=== PATIENT | male | born 1955 | race African-American/Black ===

== ENCOUNTER 2020-03-03 19:11 | Emergency (ER) | payer MEDICARE, SELFPAY | END 2020-03-03 20:07 | disposition home or self-care (01) | LOC: NAV ERS 19:11 | DX: M25.511 Pain in right shoulder (principal); X50.0XXA Overexertion from strenuous movement or load, initial encounter | CPT/HCPCS: 99281 ==

== ENCOUNTER 2025-07-09 22:02 | Emergency (ER) | payer MEDICARE ==
[~2025-07-09 22:02] MED LIST: Iopamidol 370 76% 100 ML VIAL ONE
[2025-07-09 23:17] LABS: INR-International Normal Ratio 1.2; Prothrombin Time 15.5 sec (12.0-14.7)
[2025-07-09 23:18] LABS: PTT 36.7 sec (22.9-36.1)
[2025-07-09 23:19] LABS: ALT (SGPT) 14 U/L (Less than 45); AST (SGOT) 19 U/L (11-34); Albumin 3.9 g/dL (3.1-4.5); Alkaline Phosphatase 63 U/L (40-110); Anion Gap 16 mmol/L (10-20); BUN (Urea Nitrogen) 13 mg/dL (8.4-25.7); Bilirubin, Total 0.4 mg/dL (0.3-1.2); Calc. Creatinine Clearance 0 mL/min (70-130); Calcium 9.3 mg/dL (7.8-10.44); Carbon Dioxide 22 mmol/L (23-31); Chloride 110 mmol/L (98-107); Globulin 2.9 g/dL (2.4-3.5); Glucose 66 mg/dL (83-110); Potassium 4.2 mmol/L (3.5-5.1); Sodium 144 mmol/L (136-145)
[2025-07-09 23:26] LABS: #Basophils 0.1 thou/uL (0.0-0.2); #Eosinophils 0.2 thou/uL (0.0-0.7); #Lymphocytes 1.9 thou/uL (1.20-3.40); #Monocytes 0.4 thou/uL (0.11-0.59); #Neutrophils 2.0 thou/uL (1.40-6.50); %Basophils 2.2 % (0.0-1.0); %Eosinophils 3.9 % (0.0-10.0); %Lymphocytes 40.4 % (21.0-51.0); %Monocytes 9.6 % (0.0-10.0); %Neutrophils 44.0 % (42.0-75.0); Hematocrit 34.5 % (42.0-52.0); Hemoglobin 11.9 g/dL (14.0-18.0); Mean Corpuscular Hemoglobin 30.6 pg (27.0-31.0); Mean Corpuscular Volume 88.7 fl (78.0-98.0); Platelet Count 128 10x3/uL (130-400); Red Blood Cell (RBC) Count 3.89 mill/uL (4.70-6.10); White Blood Cell (WBC) Count 4.6 10x3/uL (4.8-10.8)
[2025-07-10] MEDS ORDERED: Tenecteplase 50 MG ONE (04:38)
[2025-07-10] MEDS ORDERED: niCARdipine 25 MG/10 ML SDV ONE (04:38)
== END 2025-07-10 02:14 | disposition short-term general hospital (02) ==
LOC: NAV ERS 22:02
DX: I63.9 Cerebral infarction, unspecified (principal); R13.0 Aphagia; I66.02 Occlusion and stenosis of left middle cerebral artery; R29.700 NIHSS score 0; E11.9 Type 2 diabetes mellitus without complications; I10 Essential (primary) hypertension; E78.5 Hyperlipidemia, unspecified; Z79.899 Other long term (current) drug therapy; Z79.01 Long term (current) use of anticoagulants; Z79.84 Long term (current) use of oral hypoglycemic drugs
CPT/HCPCS: 36416; 70450; 70496; 70498; 80053; 85025; 85610; 85730; 93005; 96365; 96366; 96375; J3101; J7050; Q9967